=== PATIENT | male | born 1990 | race Hispanic/Latino ===

== ENCOUNTER 2022-10-16 12:50 | Emergency (ER) | payer MEDICARE ==
[~2022-10-16] VITALS: Ht 188 cm; Wt 174.6 kg
[2022-10-16 13:46] LABS: BASOPHILS # (AUTO) 0.02 K/uL (0.00-0.20); BASOPHILS % (AUTO) 0.7 % (0.0-5.0); EOSINOPHILS % (AUTO) 3.6 % (0.0-8.0); HEMATOCRIT 28.5 % (42-54); LYMPHOCYTES # (AUTO) 1.1 K/uL (1.0-4.8); LYMPHOCYTES % (AUTO) 38.3 % (21.0-51.0); MEAN CORPUSCULAR HGB CONC 23.5 g/dL (32.0-36.0); MEAN CORPUSCULAR VOLUME 59.7 fL (79-99); MONOCYTES # (AUTO) 0.4 K/uL (0.1-1.0); MONOCYTES % (AUTO) 14.1 % (3.0-13.0); NEUTROPHILS # (AUTO) 1.2 K/uL (1.8-7.7); NEUTROPHILS % (AUTO) 43.3 % (40.0-77.0); PLATELET COUNT (AUTO) 201 K/uL (130-400); RED BLOOD CELL COUNT(AUTO) 4.77 MIL/uL (4.50-6.20); RED CELL DISTRIBUTION WIDTH 22.2 % (11.0-15.5); WHITE BLOOD COUNT (AUTO) 2.8 K/uL (4.8-10.8)
[2022-10-16 13:53] LABS: CREATININE 0.9 mg/dL (0.5-1.5); POTASSIUM 3.9 mmol/L (3.5-5.1)
[2022-10-16 13:58] LABS: BILIRUBIN,TOTAL 0.5 mg/dL (0.2-1.0); TOTAL PROTEIN, SERUM 7.8 g/dL (6.0-8.3)
[2022-10-16 15:17] LABS: BASOPHILS % (MANUAL) 1 % (0-2); EOSINOPHILS % (MANUAL) 3 % (1-6); LYMPHOCYTES % (MANUAL) 37 % (22-44); MAN.DIFF COMMENT-IMPRESSION MANUAL DIFFERENTIAL; MONOCYTES % (MANUAL) 12 % (2-9); PLATELET MORPHOLOGY COMMENT ADEQUATE; SEGMENTED NEUTROPHILS % 47 % (40-70); TOTAL CELLS COUNTED 100; WBC MORPHOLOGY SMUDGE CELLS 1+
[2022-10-16 20:30] VITALS: BP 132/81; PULSE 88; RESP 16; O2SAT 98
== END 2022-10-16 21:01 | disposition home or self-care (01) ==
LOC: EDH 12:50
DX: D64.9 Anemia, unspecified (principal)
CPT/HCPCS: 99285; 36430; 80053; 85025; 86923; 86850; 86900; 86901; 36415; P9016 ×2

== ENCOUNTER 2024-10-04 13:22 | Emergency (ER) | payer MEDICARE ==
[~2024-10-04] VITALS: Ht 188 cm; Wt 137.9 kg
[2024-10-04 13:24] VITALS: TEMP 98.1
--- NOTE | 2024-10-04 13:41 | EKG ---
[facility] Test Date: 2024-10-04 Test Time: 13:23:26 Pat Name: LLUVIA VILLAR Department: ED Room: Gender: [employer] Straightener: [id number] : 1990 Requested By: GRIFFIN DOVE Order Number: [id number] Reading MD: Ludwig Russo Measurements Intervals [place] Rate: 101 P: 42 IA: 144 QRS: 8 QRSD: 71 T: 77 QT: 313 QTc: 405 Interpretive Statements Sinus tachycardia Atrial premature complex No previous ECG available for comparison Electronically Signed On 10-05-2024 05:16:21 CDT by Ludwig Russo Please click the below link to view image of tracing.
--- NOTE | 2024-10-04 13:52 | ERN ---
General Chief Complaint: Abdominal Pain Stated Complaint: ABD PAIN Time Seen by MD: 13:25 Source: patient History of Present Illness Initial Comments PATIENT IS A 34-YEAR-OLD MALE COMING IN COMPLAINING OF THE EPIGASTRIC PAIN. THE PAIN HAS BEEN ONGOING FOR ONE WEEK. HE STATES THAT ALONG WITH THE ABDOMINAL PAIN HAS BEEN HAVING DIARRHEA. Allergies: Coded Allergies: No Known Allergies (Unverified Allergy, Unknown, 10/16/22) Past Medical History Past Medical History: Other Medical History Other: INSOMNIA Past Surgical History: None Social History Social History: Negative ROS Dictation CONSTITUTIONAL: NO CHILLS, NO FEVER, NO WEAKNESS, NO DIAPHORESIS, NO MALAISE. HEAD/FACE: NO SIGNS OF TRAUMA. EENT: NO EYE PAIN, NO BLURRED VISION, NO TEARING, NO DOUBLE VISION, NO EAR PAIN, NO EAR DISCHARGE, NO NOSE PAIN, NO NASAL CONGESTION, NO THROAT PAIN, NO TH ROAT SWELLING, NO MOUTH PAIN. RESPIRATORY: NO COUGH, NO ORTHOPNEA, NO SOB, NO STRIDOR, NO WHEEZING. CARDIOVASCULAR: NO CHEST PAIN, NO EDEMA, NO PALPITATIONS, NO SYNCOPE. GASTROINTESTINAL/ABDOMINAL: ABDOMINAL PAIN, NO CONSTIPATION, NO DIARRHEA, NO NAUSEA, NO VOMITING. GENITOURINARY: NO ABNORMAL DISCHARGE, NO DYSURIA, NO FREQUENT URINATION, NO HEMATURIA. NO COMPLAINTS OF PAIN IN THE GENITALS. MUSCULOSKELETAL: NO BACK PAIN, NO GOUT, NO JOINT PAIN, NO JOINT SWELLING, NO MUSCLE PAIN, NO MUSCLE STIFFNESS, NO NECK PAIN. INTEGUMENTARY: NO CHANGE IN COLOR, NO CHANGE IN HAIR/NAILS, NO DRYNESS, NO LESION, NO LUMPS, NO RASH. NEUROLOGICAL/PSYCH: NO ANXIETY, NOT DEPRESSED, NO EMOTIONAL PROBLEM, NO HEADACHE, NO NUMBNESS, NO PRE-EXISTING DEFICIT, NO HISTORY OF SEIZURES, NO TREMORS, NO WEAKNESS. HEMATOLOGIC/LYMPHATIC: NOT ANEMIC, NO HISTORY OF BLOOD CLOTS, NO APPARENT BLEEDING, NO BRUISING, GLANDS NOT SWOLLEN. ALL SYSTEMS NEGATIVE, EXCEPT NOTED. Physical Exam Physical Exam Dictation VITAL SIGNS: REVIEWED. GENERAL APPEARANCE: ALERT, ORIENTED X3, NO ACUTE DISTRESS, OBESE. HEAD AND FACE: NON-TRAUMATIC. EYES: PERRL, PINK CONJUNCTIVAS, EYELID NO TRAUMA, ANTERIOR CHAMBER CLEAR. EARS: PINNAS INTACT AND NO SIGNS OF TRAUMA OR ERYTHEMA. EAR CANALS CLEAR AND NO DISCHARGE. TMS NO ERYTHEMA. NOSE: NO DISCHARGE, NO BLEEDING. OROPHARYNX: MOUTH NORMAL, TEETH NO CARIES, TONGUE PINK. PHARYNX CLEAR, NO ERYTHEMA. TONSILS NO EXUDATES, NO ABSCESSES NOTED. MUCOUS MEMBRANE MOIST. NECK: SUPPLE, NON-TENDER, NO THYROMEGALY, NO MASSES, NO JVD, NO BRUITS. BREAST: DEFERRED. CHEST: NO TENDERNESS, NO CREPITUS, NO PARADOXICAL MOVEMENT, NO RETRACTIONS. LUNGS: CLEAR, WELL-VENTILATED, SYMMETRIC, NO RALES, NO WHEEZING, NO RHONCHI, NO STRIDOR, GOOD BREATH SOUNDS BILATERALLY. HEART: REGULAR RATE, REGULAR RHYTHM, NO MURMUR, NO GALLOPS. VASCULAR: NO PERIPHERAL EDEMA. ABDOMEN: SOFT, POSITIVE BOWEL SOUNDS, NONDISTENDED, NO GUARDING, EPIGASTRIC TENDERNESS ON PALPATION, NO REBOUND, NO MASSES NO HEPATOMEGALY, NO SPLENOMEGALY, NO ROCHE'S SIGN, NO HERNIAS. RECTAL: DEFERRED. GENITAL: DEFERRED. NEUROLOGICAL: NORMAL SPEECH, GROSS MOTOR FUNCTION INTACT, GROSS SENSORY FUNCTION INTACT. MUSCULOSKELETAL: NECK NONTENDER, FULL RANGE OF MOTION, BACK NONTENDER, FULL RANGE OF MOTION. EXTREMITIES: NONTENDER, FULL RANGE OF MOTION. SKIN: COLOR PINK, DRY, NO TURGOR, NO RASH, NO LACERATIONS, NO ABRASIONS, NO CONTUSIONS. LYMPHATICS: DEFERRED. Results Laboratory and Microbiology Lab and Micro Result Laboratory Tests Test 10/04/24 14:12 10/04/24 15:12 White Blood Count 3.3 K/uL (4.8-10.8) L Red Blood Count 5.55 MIL/uL (4.50-6.20) Hemoglobin 8.7 g/dL (14.0-18.0) L Hematocrit 33.3 % (42-54) L Mean Corpuscular Volume 60.0 fL (79-99) L Mean Corpuscular Hemoglobin 15.7 pg (27.0-33.0) L Mean Corpuscular Hemoglobin Concent 26.1 g/dL (32.0-36.0) L Red Cell Distribution Width 21.1 % (11.0-15.5) H Platelet Count 298 K/uL (130-400) Mean Platelet Volume fL (7.5-10.5) Immature Granulocyte % (Auto) 0.0 % (0-1) Neutrophils (%) (Auto) 56.7 % (40.0-77.0) Lymphocytes (%) (Auto) 23.2 % (21.0-51.0) Monocytes (%) (Auto) 17.7 % (3.0-13.0) H Eosinophils (%) (Auto) 1.8 % (0.0-8.0) Basophils (%) (Auto) 0.6 % (0.0-5.0) Neutrophils # (Auto) 1.9 K/uL (1.8-7.7) Lymphocytes # (Auto) 0.8 K/uL (1.0-4.8) L Monocytes # (Auto) 0.6 K/uL (0.1-1.0) Eosinophils # (Auto) 0.06 K/uL (0.00-0.70) Basophils # (Auto) 0.02 K/uL (0.00-0.20) Absolute Immature Granulocyte (auto 0.00 K/uL (0-1) Nucleated Red Blood Cells 0.0 % (0.0-0.19) White Cell Morphology Comment See comments Red Blood Cell Morphology See comments Sodium Level 132 mmol/L (136-145) L Potassium Level 3.9 mmol/L (3.5-5.1) Chloride Level 99 mmol/L (101-111) L Carbon Dioxide Level 29 mmol/L (21-32) Blood Urea Nitrogen 11 mg/dL (7-18) Creatinine 0.8 mg/dL (0.5-1.3) Glomerular Filtration Rate Calc 118 mL/min (>90) Random Glucose 99 mg/dL (70-105) Total Calcium 9.2 mg/dL (8.5-10.1) Total Bilirubin 0.8 mg/dL (0.2-1.0) Aspartate Amino Transf (AST/SGOT) 69 U/L (10-37) H Alanine Aminotransferase (ALT/SGPT) 110 U/L (12-78) H Alkaline Phosphatase 338 U/L (50-136) H Total Creatine Kinase 91 U/L (21-232) Total Protein 8.7 g/dL (6.0-8.3) H Albumin 3.2 g/dL (3.5-5.0) L Lipase 54 U/L (16-77) Urine Color YELLOW (YELLOW) Urine Appearance CLEAR (CLEAR) Urine pH 6.0 (5.0-8.0) Urine Specific [place] 1.020 (1.001-1.031) Urine Protein 20 mg/dL (NEGATIVE) H Urine Glucose (UA) NEGATIVE mg/dL (NEGATIVE) Urine Ketones NEGATIVE mg/dL (NEGATIVE) Urine Occult Blood NEGATIVE (NEGATIVE) Urine Nitrate NEGATIVE (NEGATIVE) Urine Bilirubin NEGATIVE mg/dL (NEGATIVE) Urine Urobilinogen 0.2 mg/dL (0.2-1.0) Urine Leukocyte Esterase NEGATIVE Dwain/uL Urine RBC 0-1 /HPF (0-1) Urine WBC 2-5 /HPF (0-1) H Urine Squamous Epithelial Cells RARE /HPF (0-2) Urine Bacteria RARE /HPF (None Seen) Urine Hyaline Casts 2-5 /LPF (0-1 /LPF) H Urine Other Casts 5 /LPF (None Seen) Urine Opiates Screen NEGATIVE (NEGATIVE) Urine Barbiturates Screen NEGATIVE (NEGATIVE) Urine Phencyclidine Screen NEGATIVE (NEGATIVE) Urine Amphetamines Screen NEGATIVE (NEGATIVE) Urine Benzodiazepines Screen NEGATIVE (NEGATIVE) Urine Cocaine Screen POSITIVE (NEGATIVE) H Urine Marijuana (THC) Screen NEGATIVE (NEGATIVE) Labs Reviewed?: Yes EKG/XRAY/US/CT/MRI EKG Comment 10/04/2024 TIME 1:23 P.M. VENTRICULAR RATE 101 SIN[address] [place]YCARD[place] [address] WAVE ELEVATION OR DEPRESSION MDM MDM: DIFFERENTIAL DIAGNOSIS: POLYSUBSTANCE ABUSE, GASTRITIS, VIRAL GASTROENTERITIS, ALCOHOL ABUSE, RATIONALE: TESTS CONSIDERED AND ORDERED SECONDARY TO SHARED DECISION MAKING INCLUDE: PREVIOUS OUTSIDE RECORDS REVIEWED: OLD ER VISITS. RISK OF COMPLICATION AND/OR MORBIDITY OR MORTALITY OF PATIENT MANAGEMENT: NONE MEDICATIONS-PER MEDICATION RECONCILIATION NEED FOR HOSPITALIZATION: PATIENT DOES NOT MEET CRITERIA FOR HOSPITALIZATION. NEED FOR EMERGENCY MAJOR/MINOR SURGERY: NO PATIENT IS A 34-YEAR-OLD GENTLEMAN COMING IN COMPLAINING OF ABDOMINAL DISCOMFORT. LABORATORY WORKUP ELEVATED LIVER ENZYMES AND DRUG SCREEN POSITIVE FOR COCAINE. I DID ADVISED HIM APPROPRIATE FOLLOW UP WITH PCP AND SYMPTOMATIC MANAGEMENT ALSO ADVISED HIM ABSTAINING FROM DRUG ABUSE THIS COULD LEAD TO A HEART ATTACK. PATIENT HAS BEEN RESTING THROUGHOUT ER VISIT. ED Course Orders Procedure Category Date Status Time Cbc With Differential LAB 10/04/24 Complete 13:37 Comprehensive LAB 10/04/24 Complete Metabolic Panel 13:37 Urinalysis Profile LAB 10/04/24 Complete 13:37 12 Lead Ekg Tracing- EKG 10/04/24 Complete Technical 13:37 0.9%Nacl 1000ml (Ns PHA 10/04/24 Complete 1000ml) 14:00 Ondansetron 4mg Inj PHA 10/04/24 Complete (Zofran 4mg Inj) 14:00 Lidocaine Hcl 2% PHA 10/04/24 Complete Viscous (Lidocaine Hcl 14:00 Mag/Alum/Simeth 30ml PHA 10/04/24 Complete (Maalox Plus 30ml) 14:00 Pantoprazole 40mg Inj PHA 10/04/24 Complete (Protonix 40mg Inj 14:00 Creatine Kinase, Total LAB 10/04/24 Complete 13:37 Lipase LAB 10/04/24 Complete 13:37 Drug Screen Urine LAB 10/04/24 Complete 13:37 Current Medications Medications (Trade) Dose Ordered Sig/[place] Route PRN Reason Start Time Stop Time Status Last Admin Dose Admin Al Hydroxide/Mg Hydroxide (MAALox PLUS 30ML) 30 ml ONCE ONCE PO 10/04/24 14:00 10/04/24 14:01 DC 10/04/24 14:09 Lidocaine HCl (Lidocaine HCl 2% Viscous) 10 ml ONCE ONCE PO 10/04/24 14:00 10/04/24 14:01 DC 10/04/24 14:10 Ondansetron HCl (zoFRAN 4MG INJ) 4 mg ONCE ONCE IVP 10/04/24 14:00 10/04/24 14:01 DC 10/04/24 14:10 Pantoprazole Sodium (PROTonix 40MG INJ) 40 mg ONCE ONCE IVP 10/04/24 14:00 10/04/24 14:01 DC 10/04/24 14:10 Sodium Chloride 1,000 ml @ 0 mls/hr ONCE ONCE IV 10/04/24 14:00 10/04/24 14:01 DC 10/04/24 14:10 Vital Signs Date Time Temp Pulse Resp B/P (MAP) Pulse Ox O2 Delivery O2 Flow Rate FiO2 10/04/24 14:16 74 20 137/91 97 Room Air* 0 21 10/04/24 13:24 98.1 117 18 131/97 100 Room Air 0 DX & DISP Disposition: Discharge Departure Impression: Primary Impression: Cocaine abuse Additional Impressions: Alcohol abuse, Viral gastroenteritis Condition: Stable Additional Instructions: YOU HAVE BEEN REVIEWED IN THE EMERGENCY DEPARTMENT AT [facility] AFTER PRESENTING WITH CHEST PAIN. AFTER CONSIDERING YOUR HISTORY, YOUR RISK FACTORS, YOUR EKG AND YOUR BLOOD TEST TROPONINS, HAVE BEEN FOUND TO BE AT VERY LOW RISK LESS THAN (1 IN 100) OF HAVING A MAJOR ADVERSE CARDIAC EVENT (LIKE HEART ATTACK) IN THE NEAR FUTURE. IN THE " LOW RISK" GROUP, THE RISKS OF DOING FURTHER TESTS AND TREATMENT THE INPATIENT OUTWEIGHS THE BENEFITS. IN MANY PATIENTS IN THE LOW RISK GROUP FOR THE TEST OF ANY SORT OR UNNECESSARY, HOWEVER HE SHOULD DISCUSS THIS FURTHER WITH HIS GENERAL PRACTITIONER WHO WILL UNDERSTAND THE MEDICAL AND PERSONAL BACKGROUNDS BETTER. BECAUSE WE HAVE NEVER DECLARED YOU" NO RISK" WE WOULD SUGGEST. 1 RETURNING FOR MEDICAL REVIEW IF YOU HAVE FURTHER EPISODES OF CHEST PAIN/ARM PAIN OR OTHER CONCERNING SYMPTOMS LIKE DIZZINESS, COLLAPSE, PALPITATIONS OR SHORTNESS OF BREATH. 2. FOLLOWING UP WITH YOUR LOCAL DOCTOR WHO WILL CONSIDER THE NEED FOR FURTHER TESTING AND WILL ALSO ENSURE THAT ANY MODIFIABLE RISK FACTORS YOU MAY HAVE FOR HEART DISEASE ARE OPTIMALLY MANAGED. PATIENT WILL BE DISCHARGED IN STABLE CONDITION AT THE MOMENT DISCHARGE PATIENT STATES , NO CHEST PAIN Referrals: JULIO SENA (PCP) Time of Disposition: 15:51 GRIFFIN DOVE MD Oct 04, 2024 13:52
[2024-10-04] MEDS: MAG/ALUM/SIMETH 30 ML UDCUP PO ONE (14:09)
[2024-10-04] MEDS: 0.9%NACL 1000ML 1,000 ML IV ONE (14:10)
[2024-10-04] MEDS: LIDOCAINE HCL 2% VISCOUS 15 ML UDCUP PO ONE (14:10)
[2024-10-04 14:29] LABS: IMMATURE GRANULOCYTE ABSOLUTE 0.00 K/uL (0-1); NUCLEATED RED BLOOD CELLS 0.0 % (0.0-0.19); PLATELET COUNT (AUTO) 298 K/uL (130-400); RED BLOOD CELL COUNT(AUTO) 5.55 MIL/uL (4.50-6.20); RED CELL DISTRIBUTION WIDTH 21.1 % (11.0-15.5); WHITE BLOOD COUNT (AUTO) 3.3 K/uL (4.8-10.8)
[2024-10-04 14:31] LABS: CREATININE 0.8 mg/dL (0.5-1.3); GLOMERULAR FILTR. RATE CALC 118.0 mL/min (>90); GLUCOSE,RANDOM 99.0 mg/dL (70-105); SODIUM SERUM 132.0 mmol/L (136-145); UREA NITROGEN, BLOOD 11.0 mg/dL (7-18)
[2024-10-04 14:43] LABS: ASPARTATE AMINOTRANSFERASE 69.0 U/L (10-37); CREATINE KINASE, TOTAL 91.0 U/L (21-232); TOTAL PROTEIN, SERUM 8.7 g/dL (6.0-8.3)
[2024-10-04 15:27] LABS: APPEARANCE,URINE CLEAR (CLEAR); GLUCOSE, URINE (UA) NEGATIVE (NEGATIVE); LEUKOCYTE ESTERASE ,URINE NEGATIVE Leu/uL (NEGATIVE); NITRATE,URINE NEGATIVE (NEGATIVE); OCCULT BLOOD,URINE NEGATIVE (NEGATIVE)
[2024-10-04 15:31] LABS: AMPHET/METH SCREEN,URINE NEGATIVE (NEGATIVE); BARBITURATE SCREEN, URINE NEGATIVE (NEGATIVE); CANNABINOID SCREEN,URINE NEGATIVE (NEGATIVE); COCAINE SCREEN,URINE POSITIVE (NEGATIVE)
[2024-10-04 15:38] LABS: ADD UA MICROSCOPIC YES
[2024-10-04 15:42] LABS: OTHER CASTS, URINE 5 /LPF (None Seen); SQUAMOUS EPITHELIAL CELL,UR RARE /HPF (0-2)
[2024-10-04 16:00] VITALS: BP 145/79; PULSE 89; RESP 20; O2SAT 98
== END 2024-10-04 16:14 | disposition home or self-care (01) ==
LOC: EDH 13:22
DX: A08.4 Viral intestinal infection, unspecified (principal); F14.10 Cocaine abuse, uncomplicated; F10.10 Alcohol abuse, uncomplicated
CPT/HCPCS: 99284; 96374; 96361; 96375; 81001; 82550; 80053; 80305; 83690; 85025; 36415; 93005; J2405; J2470